=== PATIENT | female | born 1965 | race Caucasian/White ===

== ENCOUNTER 2023-07-01 17:29 | Emergency (ER) | payer OTHER, SELFPAY ==
[2023-07-01 18:06] VITALS: BP 149/83; PULSE 79; RESP 16; TEMP 36.3; O2SAT 100
--- NOTE | 2023-07-01 18:38 | ECG_ITS ---
Measurements Intervals [place] Rate: 74 P: 17 MS: 154 QRS: -9 QRSD: 90 T: 2 QT: 366 QTc: 408 Interpretive Statements SINUS RHYTHM VOLTAGE CRITERIA FOR LVH [MEETS CRITERIA IN ONE OF: R(aVL), S(V1), R(V5), R(V5/V6)+S(V1)] NO PREVIOUS ECG AVAILABLE FOR COMPARISON Electronically Signed On 07-02-2023 8:40:05 [employer] by Devang Rodriguez M.D.
[2023-07-01 19:23] VITALS: BP 138/74; PULSE 74; RESP 16; TEMP 36.6; O2SAT 100
--- NOTE | 2023-07-01 20:39 | ED.EXTPRO ---
HPI - Extremity Problem General Chief complaint: Extremity Problem,Nontraumatic Stated complaint: L ARM/SHOULDER PAIN. NO INJURY Time Seen by Provider: 07/01/23 20:30 Source: patient Mode of arrival: ambulatory Limitations: no limitations History of Present Illness HPI Narrative: 58-year-old with a history of hypertension here with complaints of left shoulder pain for past few days. She denies any trauma. The pain is constant. She denies any neck pain or chest pain Related Data Allergies Allergy/AdvReac Type Severity Reaction Status Date / Time No Known Allergies Allergy Verified 07/01/23 19:25 Review of Systems Review of Systems: All systems reviewed & are unremarkable except as noted in HPI and below Constitutional: Constitutional: Reports no additional constitutional complaints Eyes: Eyes: Reports no additional eye complaints ENT: Reports system reviewed and no additional complaints, except as documented Cardiovascular: Cardiovascular: Reports no additional cardiovascular complaints Respiratory: Respiratory: Reports no additional respiratory complaints Musculoskeletal: Musculoskeletal: Reports as per HPI Neurologic: Reports system reviewed and no additional complaints, except as documented Exam Narrative: GENERAL: Well-appearing, well-nourished, and in no acute distress. HEAD: Normocephalic, atraumatic. EYES: PERRLA and EOMI. NECK: Supple. CHEST: Clear to auscultation. No respiratory distress. HEART: Regular rate and rhythm. No murmur heard. Normal peripheral pulses. EXTREMITIES: Normal range of motion. No edema. left shoulder normal range of motion SKIN: Warm, dry, no rash. NEURO: No focal deficits. Alert and oriented x3. PSYCH: Normal mood and affect. Course Course Emergency Course: patient declined x-rays we did inform her about the EKG findings we did advise her to take the medication and muscle relaxers as prescribed Vital Signs Vital signs: Vital Signs Temperature 36.3 C L 07/01/23 18:06 Pulse Rate 79 07/01/23 18:06 Respiratory Rate 16 07/01/23 18:06 Blood Pressure 149/83 H 07/01/23 18:06 Pulse Oximetry 100 07/01/23 18:06 Temperature 36.6 C 07/01/23 19:23 Pulse Rate 74 07/01/23 19:23 Respiratory Rate 16 07/01/23 19:23 Blood Pressure 138/74 07/01/23 19:23 Pulse Oximetry 100 07/01/23 19:23 Oxygen Delivery Room Air 02/05/24 19:23 MDM - Extremity (Nontraumatic) ECG Data EKG #1: ECG completion date: 07/01/23 ECG completion time: 20:45 EKG Interpretation: normal rate (74), sinus rhythm, no ectopy, no ST changes and NL axis Discharge Plan Discharge Clinical Impression: Acute shoulder pain Patient Disposition: Home, Self-Care Condition: Stable Instructions: Arthralgia (ED) Prescriptions: New ibuprofen 600 mg tablet 600 mg PO TID PRN (Reason: pain) Qty: 20 0RF cyclobenzaprine 5 mg tablet 5 mg PO TID PRN (Reason: muscle spasm) Qty: 20 0RF Follow-up/Referrals: PHYSICIAN NOT ON STAFF,NONSTAFF [Primary Care Provider] - Time of Disposition: 20:48
[2023-07-01 21:12] VITALS: BP 149/84; PULSE 80; RESP 17; O2SAT 99
== END 2023-07-01 21:17 | disposition home or self-care (01) ==
LOC: ANHED 21:15
PROVIDERS: Emergency Provider Family Medicine
DX: M25.511 Pain in right shoulder (principal)
CPT/HCPCS: 93005; 99283